=== PATIENT | female | born 1960 | race Two or more races ===

== ENCOUNTER 2017-07-01 11:23 | Inpatient (IN) | payer MEDICAID ==
[~2017-07-01] VITALS: Ht 152.4 cm; Wt 63.0 kg
[~2017-07-01 11:23] MED LIST: CARI-277; NOR10T; PROP-312
[2017-07-01 11:51] LABS: Urine WBC None Seen /hpf (0 - 5)
[2017-07-01 11:53] LABS: Basophils # (auto) 0.1 uL; Basophils % (auto) 0.9 % (0.0-2.0); Eosinophils # (auto) 0.1 uL; Eosinophils % (auto) 1.5 % (0.0-7.0); Hematocrit 42.5 % (36.0-46.0); Hemoglobin 14.2 g/dL (12.2-16.2); Lymphocytes # (auto) 2.4 uL; Lymphocytes % (auto) 25.4 % (10.0-50.0); Mean Corpuscular Hemoglobin 30.5 pg (28.0-32.0); Mean Corpuscular Hgb Conc. 33.4 g/dL (32.0-36.0); Mean Corpuscular Volume 91.2 fL (80.0-100.0); Monocytes # (auto) 0.4 uL; Monocytes % (auto) 4.3 % (0.0-12.0); Neutrophils # (auto) 6.3 uL; Neutrophils % (auto) 67.9 % (37.0-80.0); Platelet Count (auto) 296 10^3/uL (140-450); Red Blood Cells 4.66 10^6/uL (4.0-5.20); Red Cell Distribution Width 13.1 % (11.8-14.3); White Blood Cell 9.3 10^3/uL (4.4-10.8)
[2017-07-01 12:01] LABS: Urine Bacteria NONE SEEN /hpf (None Seen); Urine Blood TRACE /uL (Negative); Urine Mucus FEW (None Seen); Urine Specific Gravity 1.007 (1.001-1.035)
[2017-07-01 12:25] LABS: Albumin 3.9 g/dL (3.4-5.0); BUN/Creatinine Ratio 13.7; Bilirubin, Total 0.5 mg/dL (0.2-1.0); Calcium 8.4 mg/dL (8.5-10.1); Potassium 4.1 mmol/L (3.5-5.1)
[2017-07-01] MEDS ORDERED: SODIUM CHLORIDE 0.9% 500 ML IVB ONE (13:05)
[2017-07-01] MEDS ORDERED: HYDROmorphone HCL 2 MG/ML VL IV ONE ×2 (13:15→14:30)
[2017-07-01] MEDS ORDERED: ONDANSETRON HCL 4 MG/2 ML VIAL IV ONE (13:15)
[2017-07-01 15:15] LABS: Magnesium 2.2 mg/dL (1.6-2.6)
[2017-07-01] MEDS ORDERED: LEVOFLOXACIN 500MG 100 ML IV ONE (15:15)
[2017-07-01] MEDS ORDERED: metroNIDAZOLE 500MG/100ML 100 ML IV ONE (15:15)
[2017-07-01] MEDS ORDERED: NITROGLYCERIN 0.4 MG SL TAB SL PRN (15:45)
[2017-07-01] MEDS ORDERED: MORPHINE SULF INJ 2 MG/ML SYRINGE 1ML IV PRN (15:45)
[2017-07-01] MEDS: SODIUM CHLORIDE 0.9% 1,000 ML IV SCH ×3 (16:00→17:32)
[2017-07-01] MEDS: HYDROmorphone HCL 2 MG/ML VL IV PRN ×2 (18:50→22:34)
[2017-07-01] MEDS: ONDANSETRON HCL 4 MG/2 ML VIAL IV PRN (18:50)
[2017-07-01 20:00] VITALS: BP 134/75
[2017-07-01 20:10] VITALS: BP 134/75
[2017-07-01 22:00] VITALS: BP 134/75
[2017-07-01] MEDS: metroNIDAZOLE 500MG/100ML 100 ML IV SCH (22:04)
[2017-07-01] MEDS ORDERED: MORP15TA PO (23:40)
[2017-07-01] MEDS ORDERED: ALPR0.5T PO (23:40)
[2017-07-01] MEDS ORDERED: DOCU-94 PO (23:42)
[2017-07-01] MEDS ORDERED: BACL20TA PO ×2 (23:42)
[2017-07-02] MEDS: TEMAZEPAM 15 MG CAP PO PRN (00:23)
[2017-07-02] MEDS: SODIUM CHLORIDE 0.9% 1,000 ML IV SCH ×3 (01:46→21:50)
[2017-07-02] MEDS: HYDROmorphone HCL 2 MG/ML VL IV PRN ×5 (02:33→20:49)
[2017-07-02 05:00] VITALS: BP 130/64
[2017-07-02 05:31] LABS: Basophils # (auto) 0 uL; Basophils % (auto) 0.3 % (0.0-2.0); Eosinophils # (auto) 0 uL; Eosinophils % (auto) 0.1 % (0.0-7.0); Hemoglobin 13.1 g/dL (12.2-16.2); Lymphocytes # (auto) 1.1 uL; Lymphocytes % (auto) 6.8 % (10.0-50.0); Mean Corpuscular Hemoglobin 30.5 pg (28.0-32.0); Mean Corpuscular Hgb Conc. 33.4 g/dL (32.0-36.0); Mean Corpuscular Volume 91.4 fL (80.0-100.0); Monocytes # (auto) 0.8 uL; Monocytes % (auto) 5.1 % (0.0-12.0); Neutrophils # (auto) 14.3 uL; Neutrophils % (auto) 87.7 % (37.0-80.0); Platelet Count (auto) 254 10^3/uL (140-450); Red Blood Cells 4.27 10^6/uL (4.0-5.20); White Blood Cell 16.3 10^3/uL (4.4-10.8)
[2017-07-02 05:59] LABS: BUN/Creatinine Ratio 13.3; Bilirubin, Direct 0.3 mg/dL (0-0.2); Bilirubin, Total 0.8 mg/dL (0.2-1.0); Calcium 7.8 mg/dL (8.5-10.1); Potassium 3.7 mmol/L (3.5-5.1)
[2017-07-02] MEDS: metroNIDAZOLE 500MG/100ML 100 ML IV SCH ×3 (06:16→21:50)
[2017-07-02 09:00] VITALS: BP 142/82
[2017-07-02] MEDS ORDERED: ACETAMINOPHEN 325 MG TAB PO PRN (09:15)
[2017-07-02] MEDS: LEVOFLOXACIN 500MG 100 ML IV SCH (11:24)
[2017-07-02] MEDS ORDERED: POM (12:02)
[2017-07-02 13:00] VITALS: BP 166/80
[2017-07-02] MEDS: HYDROcodone-ACET 5/325MG TAB PO PRN (14:12)
[2017-07-02] MEDS: ALPRAZolam 0.5 MG TAB PO PRN (14:13)
[2017-07-02 16:55] VITALS: BP 148/83
[2017-07-02] MEDS: ONDANSETRON HCL 4 MG/2 ML VIAL IV PRN (17:18)
[2017-07-02 23:14] VITALS: BP 123/66
[2017-07-03] MEDS: ALPRAZolam 0.5 MG TAB PO PRN (01:17)
[2017-07-03] MEDS: HYDROmorphone HCL 2 MG/ML VL IV PRN ×4 (03:11→23:41)
[2017-07-03] MEDS: HYDROcodone-ACET 5/325MG TAB PO PRN ×3 (04:53→17:50)
[2017-07-03 05:06] VITALS: BP 136/76
[2017-07-03] MEDS: metroNIDAZOLE 500MG/100ML 100 ML IV SCH ×3 (05:49→21:17)
[2017-07-03] MEDS: LEVOFLOXACIN 500MG 100 ML IV SCH (08:50)
[2017-07-03] MEDS: SODIUM CHLORIDE 0.9% 1,000 ML IV SCH ×2 (08:50→17:50)
[2017-07-03 09:00] VITALS: BP 142/67
[2017-07-03 10:32] LABS: Albumin 2.4 g/dL (3.4-5.0); BUN/Creatinine Ratio 20.8; Calcium 7.8 mg/dL (8.5-10.1); Potassium 3.5 mmol/L (3.5-5.1); Total Protein 5.6 g/dL (6.4-8.2)
[2017-07-03 10:55] LABS: Basophils # (auto) 0.1 uL; Basophils % (auto) 0.4 % (0.0-2.0); Eosinophils # (auto) 0 uL; Eosinophils % (auto) 0.1 % (0.0-7.0); Hematocrit 34.6 % (36.0-46.0); Hemoglobin 11.6 g/dL (12.2-16.2); Lymphocytes # (auto) 1.1 uL; Lymphocytes % (auto) 6.9 % (10.0-50.0); Mean Corpuscular Hemoglobin 30.6 pg (28.0-32.0); Mean Corpuscular Hgb Conc. 33.6 g/dL (32.0-36.0); Monocytes % (auto) 6.5 % (0.0-12.0); Neutrophils # (auto) 13.4 uL; Neutrophils % (auto) 86.1 % (37.0-80.0); Platelet Count (auto) 215 10^3/uL (140-450); Red Cell Distribution Width 13.2 % (11.8-14.3); White Blood Cell 15.6 10^3/uL (4.4-10.8)
[2017-07-03 18:19] VITALS: BP 151/31
[2017-07-03] MEDS ORDERED: LORazepam 2MG/ML-1ML VIAL IV ONE (21:45)
[2017-07-03 22:00] VITALS: BP 165/90
[2017-07-03 23:10] VITALS: BP 145/80
[2017-07-04] MEDS: HYDROmorphone HCL 2 MG/ML VL IV PRN ×5 (02:44→20:05)
[2017-07-04 05:00] VITALS: BP 155/83
[2017-07-04] MEDS: SODIUM CHLORIDE 0.9% 1,000 ML IV SCH ×2 (05:36→13:49)
[2017-07-04] MEDS: metroNIDAZOLE 500MG/100ML 100 ML IV SCH ×3 (06:11→21:49)
[2017-07-04 06:28] LABS: Basophils # (auto) 0 uL; Basophils % (auto) 0.4 % (0.0-2.0); Eosinophils # (auto) 0.2 uL; Eosinophils % (auto) 2.3 % (0.0-7.0); Hematocrit 34.3 % (36.0-46.0); Hemoglobin 11.5 g/dL (12.2-16.2); Lymphocytes # (auto) 0.9 uL; Lymphocytes % (auto) 9.5 % (10.0-50.0); Mean Corpuscular Hemoglobin 30.8 pg (28.0-32.0); Mean Corpuscular Hgb Conc. 33.7 g/dL (32.0-36.0); Mean Corpuscular Volume 91.6 fL (80.0-100.0); Monocytes # (auto) 0.6 uL; Monocytes % (auto) 6.4 % (0.0-12.0); Neutrophils % (auto) 81.4 % (37.0-80.0); Platelet Count (auto) 232 10^3/uL (140-450); Red Blood Cells 3.74 10^6/uL (4.0-5.20); Red Cell Distribution Width 13.3 % (11.8-14.3); White Blood Cell 9.8 10^3/uL (4.4-10.8)
[2017-07-04 06:46] LABS: Calcium 7.8 mg/dL (8.5-10.1); Potassium 3.2 mmol/L (3.5-5.1)
[2017-07-04 06:49] LABS: Albumin 2.4 g/dL (3.4-5.0); BUN/Creatinine Ratio 23.7
[2017-07-04 06:52] LABS: Bilirubin, Total 0.9 mg/dL (0.2-1.0); Total Protein 5.6 g/dL (6.4-8.2)
[2017-07-04 07:09] LABS: Bilirubin, Direct 0.4 mg/dL (0-0.2)
[2017-07-04 08:00] VITALS: BP 152/85
[2017-07-04 08:51] LABS: Prothrombin Time 10.9 sec (9.37-12.3)
[2017-07-04 09:00] VITALS: BP 152/85
[2017-07-04] MEDS ORDERED: LIDOCAINE 2%HCL (LOCAL ANESTH.) INJ 20ML MDV ONE (09:44)
[2017-07-04] MEDS ORDERED: MIDAZOLAM HCL 1MG/1ML-2 ML VIAL ONE (10:22)
[2017-07-04] MEDS ORDERED: fentaNYL CITRATE 100 MCG/2 ML VL ONE (10:22)
[2017-07-04] MEDS: LEVOFLOXACIN 500MG 100 ML IV SCH (12:37)
[2017-07-04 13:16] VITALS: BP 152/74
[2017-07-04 17:20] VITALS: BP 124/86
[2017-07-04] MEDS: TEMAZEPAM 15 MG CAP PO PRN (21:40)
[2017-07-04] MEDS: HYDROcodone-ACET 5/325MG TAB PO PRN (21:40)
[2017-07-04 22:00] VITALS: BP 154/63
[2017-07-05] MEDS: HYDROmorphone HCL 2 MG/ML VL IV PRN ×3 (01:12→11:02)
[2017-07-05] MEDS: HYDROcodone-ACET 5/325MG TAB PO PRN ×3 (02:13→12:23)
[2017-07-05] MEDS: SODIUM CHLORIDE 0.9% 1,000 ML IV SCH ×2 (02:16→12:23)
[2017-07-05 05:00] VITALS: BP_SYST 141; BP_SYST 143; BP_DIAS 63; BP_DIAS 78
[2017-07-05] MEDS: metroNIDAZOLE 500MG/100ML 100 ML IV SCH (05:25)
[2017-07-05 09:00] VITALS: BP_SYST 141; BP_SYST 147; BP_DIAS 64; BP_DIAS 80
[2017-07-05] MEDS: LEVOFLOXACIN 500MG 100 ML IV SCH (10:11)
[2017-07-05] MEDS ORDERED: POTASSIUM CHL 20 Meq TABLET PO ONE (12:45)
[2017-07-05] MEDS ORDERED: SODIUM CHLORIDE 0.9% 1,000 ML IV SCH (13:00)
[2017-07-05] MEDS ORDERED: FAMOTIDINE 20 MG TAB PO SCH (13:15)
== END 2017-07-05 13:20 | disposition left against medical advice (07) | DRG 791 ==
LOC: ER 11:30 → OVERFLOW 11:31 → WEST WING 19:31
PROVIDERS: ADMIT Internal Medicine; ATTEND Internal Medicine
PROC: 0W9G3ZX Drainage of Peritoneal Cavity, Percutaneous Approach, Diagnostic (ICD-10-PCS; principal; 2017-07-04)
DX: K91.872 Postprocedural seroma of a digestive system organ or structure following a digestive system procedure (principal); E83.51 Hypocalcemia; E87.6 Hypokalemia; F17.210 Nicotine dependence, cigarettes, uncomplicated; F41.9 Anxiety disorder, unspecified; Z53.21 Procedure and treatment not carried out due to patient leaving prior to being seen by health care provider; Y83.8 Other surgical procedures as the cause of abnormal reaction of the patient, or of later complication, without mention of misadventure at the time of the procedure; M19.90 Unspecified osteoarthritis, unspecified site; Z90.49 Acquired absence of other specified parts of digestive tract; Z79.899 Other long term (current) drug therapy; Z98.51 Tubal ligation status; Y93.89 Activity, other specified; Y92.89 Other specified places as the place of occurrence of the external cause; Y99.8 Other external cause status; Z71.6 Tobacco abuse counseling
CPT/HCPCS: 10030; 36415; 49083; 74176; 76705; 76942; 80053; 80076; 81001; 82248; 83690; 83735; 85025; 85610; 87081; 87205; 93005; J1956; J2250; J2405; J3490

== ENCOUNTER 2020-03-30 12:13 | Inpatient (IN) | payer MEDICAID ==
[~2020-03-30] VITALS: Ht 152.4 cm; Wt 58.5 kg
[~2020-03-30 12:13] MED LIST changes: +ALPR0.5T PO; +BACL20TA PO; -CARI-277; +DOCU-94 PO; +MORP15TA PO; -NOR10T; +POM; -PROP-312
[2020-03-30 13:01] LABS: Basophils # (auto) 0 10 ^3/uL (0-0.2); Basophils % (auto) 0.1 % (0.0-2.0); Eosinophils # (auto) 0 10 ^3/uL (0-0.8); Eosinophils % (auto) 0.3 % (0.0-7.0); Hematocrit 37.6 % (36.0-46.0); Hemoglobin 12.7 g/dL (12.2-16.2); Lymphocytes # (auto) 1.3 10 ^3/uL (0.4-5.4); Lymphocytes % (auto) 7.5 % (10.0-50.0); Mean Corpuscular Hemoglobin 30.3 pg (28.0-32.0); Mean Corpuscular Hgb Conc. 33.8 g/dL (32.0-36.0); Mean Corpuscular Volume 89.7 fL (80.0-100.0); Neutrophils # (auto) 14.6 10 ^3/uL (1.6-8.6); Neutrophils % (auto) 86.1 % (37.0-80.0); Platelet Count (auto) 171 10^3/uL (140-450); Red Cell Distribution Width 13.3 % (11.8-14.3)
[2020-03-30 13:04] LABS: Urine Bacteria FEW /hpf (None Seen); Urine Blood 1+ /uL (Negative); Urine Specific Gravity 1.009 (1.001-1.035); Urine WBC 7 /hpf (0 - 5)
[2020-03-30 13:19] LABS: Calcium 8.7 mg/dL (8.5-10.1); Potassium 3.2 mmol/L (3.5-5.1)
[2020-03-30 13:25] LABS: Albumin 3.1 g/dL (3.4-5.0); BUN/Creatinine Ratio 14.5; Bilirubin, Total 1.1 mg/dL (0.2-1.0); Total Protein 6.3 g/dL (6.4-8.2)
[2020-03-30] MEDS ORDERED: PROCHLORPERAZINE EDISYLATE 5 MG/ML 2ML VIAL IV ONE (16:45)
[2020-03-30] MEDS ORDERED: POTASSIUM EFFERVESENT TAB 25 MEQ PO ONE (16:45)
[2020-03-30] MEDS ORDERED: SODIUM CHLORIDE 0.9% 1,000 ML IVB ONE (16:45)
[2020-03-30 17:10] LABS: Magnesium 2.2 mg/dL (1.6-2.6)
[2020-03-30] MEDS ORDERED: MORPHINE SULF INJ 2 MG/ML SYRINGE 1ML IV ONE (17:15)
[2020-03-30] MEDS ORDERED: D5W/SOD CHL 0.45%/KCL 20MEQ 1,000 ML IV SCH (17:45)
[2020-03-30] MEDS ORDERED: D5W/ SOD CHL 0.9%/KCL 20MEQ 1,000 ML IV ONE (17:45)
[2020-03-30] MEDS ORDERED: NITROGLYCERIN 0.4 MG SL TAB SL PRN (17:45)
[2020-03-30] MEDS ORDERED: PANTOPRAZOLE 40mg/50ML NS AE 50 ML IV ONE (17:45)
[2020-03-30] MEDS ORDERED: metroNIDAZOLE 500MG/100ML 100 ML IV ONE (17:45)
[2020-03-30] MEDS ORDERED: MORPHINE SULF INJ 2 MG/ML SYRINGE 1ML IV PRN (17:45)
[2020-03-30] MEDS ORDERED: cefTRIAXone 1GM/50ML D5W 50 ML IV ONE (17:45)
[2020-03-30] MEDS ORDERED: ONDANSETRON HCL 4 MG/2 ML VIAL IV PRN (17:45)
[2020-03-30 18:48] LABS: INR 0.95 (0.9-1.15); Partial Thromboplastin Time 26.4 sec (23.0-31.2)
[2020-03-30] MEDS: D5W/SOD CHL 0.45%/KCL 20MEQ 1,000 ML IV SCH (20:36)
[2020-03-30] MEDS: MORPHINE SULF INJ 2 MG/ML SYRINGE 1ML IV PRN (21:28)
[2020-03-31] MEDS: MORPHINE SULF INJ 2 MG/ML SYRINGE 1ML IV PRN ×4 (00:53→14:30)
[2020-03-31] MEDS: D5W/SOD CHL 0.45%/KCL 20MEQ 1,000 ML IV SCH ×2 (02:00→06:33)
[2020-03-31] MEDS ORDERED: MORPHINE SULF INJ 2 MG/ML SYRINGE 1ML IV PRN (05:45)
[2020-03-31 06:24] LABS: Basophils # (auto) 0 10 ^3/uL (0-0.2); Basophils % (auto) 0.3 % (0.0-2.0); Eosinophils # (auto) 0.1 10 ^3/uL (0-0.8); Eosinophils % (auto) 0.4 % (0.0-7.0); Hematocrit 35.2 % (36.0-46.0); Hemoglobin 12.1 g/dL (12.2-16.2); Lymphocytes # (auto) 1.2 10 ^3/uL (0.4-5.4); Mean Corpuscular Hemoglobin 30.7 pg (28.0-32.0); Mean Corpuscular Hgb Conc. 34.3 g/dL (32.0-36.0); Mean Corpuscular Volume 89.6 fL (80.0-100.0); Monocytes # (auto) 1.1 10 ^3/uL (0-1.3); Monocytes % (auto) 6.4 % (0.0-12.0); Neutrophils # (auto) 14.4 10 ^3/uL (1.6-8.6); Neutrophils % (auto) 85.9 % (37.0-80.0); Platelet Count (auto) 162 10^3/uL (140-450); Red Blood Cells 3.93 10^6/uL (4.0-5.20); Red Cell Distribution Width 13.3 % (11.8-14.3); White Blood Cell 16.7 10^3/uL (4.4-10.8)
[2020-03-31] MEDS: metroNIDAZOLE 500MG/100ML 100 ML IV SCH ×3 (06:33→21:48)
[2020-03-31 06:34] LABS: Potassium 3.7 mmol/L (3.5-5.1)
[2020-03-31 07:02] LABS: Albumin 2.6 g/dL (3.4-5.0); BUN/Creatinine Ratio 8.5; Bilirubin, Total 0.9 mg/dL (0.2-1.0); Calcium 8.1 mg/dL (8.5-10.1); Total Protein 5.8 g/dL (6.4-8.2)
[2020-03-31] MEDS ORDERED: POVIDONE IODINE 10 % TOPICAL OINT 30GM TOP ONE (07:06)
[2020-03-31] MEDS ORDERED: cefTRIAXone 1GM/50ML D5W 50 ML IV SCH (09:00)
[2020-03-31] MEDS ORDERED: MIDAZOLAM HCL 1MG/1ML-2 ML VIAL ONE (09:09)
[2020-03-31] MEDS ORDERED: ROCURONIUM 10MG/ML 10ML VIAL IV ONE (09:09)
[2020-03-31] MEDS ORDERED: ETOMIDATE (2MG/ML) 20ML VIAL IV ONE (09:10)
[2020-03-31] MEDS ORDERED: LIDOCAINE 1% (LOCAL ANESTH.) PF 5ml SDV ONE (09:12)
[2020-03-31] MEDS ORDERED: SUCCINYLCHOLINE CHLORIDE 20 MG/ML 10ML VIAL IV ONE (09:12)
[2020-03-31] MEDS ORDERED: ONDANSETRON HCL 4 MG/2 ML VIAL IV PRN (09:15)
[2020-03-31] MEDS ORDERED: NALOXONE HCL 0.4 MG/ML VIAL IV PRN (09:15)
[2020-03-31] MEDS ORDERED: HYDROmorphone HCL 2 MG/ML VL IV PRN (09:15)
[2020-03-31] MEDS ORDERED: fentaNYL CITRATE 100 MCG/2 ML VL ONE (09:46)
[2020-03-31] MEDS ORDERED: LIDOCAINE HCL 2% TOP JELLY 5ML TOP ONE (10:08)
[2020-03-31] MEDS ORDERED: GLYCOPYRROLATE 0.2 MG/ML 1ML VIAL ONE (10:40)
[2020-03-31] MEDS ORDERED: NEOSTIGMINE 1 MG/ML INJ (10mg/10ML VIAL) ONE (10:40)
[2020-03-31] MEDS ORDERED: D5W/SOD CHL 0.45%/KCL 40MEQ 1,000 ML IV SCH (10:45)
[2020-03-31] MEDS ORDERED: DOCUSATE SOD 100 MG CAP PO PRN (10:45)
[2020-03-31] MEDS: HYDROmorphone HCL 2 MG/ML VL IV PRN ×3 (11:10→12:30)
--- NOTE | 2020-03-31 13:17 | NUR ---
MS admit from OR Patient was brought up to the floor on a stretcher and transferred to the bed in the room. She is groggy but easy to arouse, oriented. Dressing is CDI. MONSTER drain present and was emptied prior to being brought to the floor. Will continue to monitor. Small amount of serosanguinous fluid in tubing of MONSTER drain. Patient was hooked up to LCS per doctor's order. Patient was placed on 4L O2 via NC per orders. Will continue to monitor patient. Bed in lowest position, wheels locked, upper side rails in up position. Call light next to patient on bed where it can be easily reached.
[2020-03-31] MEDS ORDERED: metroNIDAZOLE 500MG/100ML 100 ML IV SCH (14:00)
[2020-03-31] MEDS ORDERED: ceFAZolin 1GM/50ML 50 ML IV SCH (14:00)
[2020-03-31] MEDS ORDERED: HYDR-4833 PO (16:48)
[2020-03-31 17:00] VITALS: BP 144/89
[2020-03-31] MEDS ORDERED: cefTRIAXone 1GM/50ML D5W 50 ML IV ONE (18:00)
--- NOTE | 2020-03-31 18:42 | NUR ---
NG tube pulled out NG tube was pulled out. This nurse was going to place another NG tube but patient is currently refusing the NG tube saying it is making her head hurt. This nurse will endorse to the next shift as they might be able to put it in once the patient has had another dose of Morphine for pain (too soon to give at this time) and her scheduled Xanax. NG tube drained dark brown fluid prior to removal of NG tube.
[2020-03-31] MEDS: HYDROcodone-ACET 10/325MG TAB PO PRN (19:52)
[2020-03-31] MEDS: D5W/SOD CHL 0.45%/KCL 40MEQ 1,000 ML IV SCH (20:20)
[2020-03-31] MEDS: ALPRAZolam 0.5 MG TAB PO SCH (21:48)
[2020-03-31 22:00] VITALS: BP 148/70
--- NOTE | 2020-03-31 22:04 | NUR ---
pt is refusing to hae ng tube reinserted, will continue to encourage compliance.
[2020-04-01] MEDS: HYDROcodone-ACET 10/325MG TAB PO PRN ×3 (00:01→10:02)
[2020-04-01 05:00] VITALS: BP 168/99
--- NOTE | 2020-04-01 05:47 | NUR ---
pt has pulled out both IV's new one started, pt educated on risk and benefits, verbalized understanding. Pt continuews to refuse NG tube, day shift nurse to notify Dr. Cruz of situation. Full linen change and gown change.
[2020-04-01] MEDS: metroNIDAZOLE 500MG/100ML 100 ML IV SCH ×3 (06:11→21:05)
[2020-04-01] MEDS: D5W/SOD CHL 0.45%/KCL 40MEQ 1,000 ML IV SCH (06:12)
[2020-04-01 06:24] LABS: Basophils # (auto) 0.1 10 ^3/uL (0-0.2); Basophils % (auto) 0.4 % (0.0-2.0); Eosinophils # (auto) 0.1 10 ^3/uL (0-0.8); Eosinophils % (auto) 0.7 % (0.0-7.0); Hematocrit 36.5 % (36.0-46.0); Hemoglobin 12.5 g/dL (12.2-16.2); Lymphocytes # (auto) 1.8 10 ^3/uL (0.4-5.4); Lymphocytes % (auto) 13.3 % (10.0-50.0); Mean Corpuscular Hemoglobin 30.6 pg (28.0-32.0); Mean Corpuscular Hgb Conc. 34.2 g/dL (32.0-36.0); Mean Corpuscular Volume 89.5 fL (80.0-100.0); Monocytes % (auto) 7.6 % (0.0-12.0); Neutrophils # (auto) 10.6 10 ^3/uL (1.6-8.6); Nucleated Red Blood Cells % 0.1 %; Platelet Count (auto) 205 10^3/uL (140-450); Red Blood Cells 4.08 10^6/uL (4.0-5.20); Red Cell Distribution Width 13.1 % (11.8-14.3); White Blood Cell 13.6 10^3/uL (4.4-10.8)
[2020-04-01 06:33] LABS: Albumin 2.7 g/dL (3.4-5.0); Calcium 8.5 mg/dL (8.5-10.1); Potassium 3.5 mmol/L (3.5-5.1)
--- NOTE | 2020-04-01 06:35 | NUR ---
Dr. Cruz paged re: pt NG tube, awaiting further orders
[2020-04-01 06:36] LABS: Bilirubin, Total 0.8 mg/dL (0.2-1.0); Total Protein 5.9 g/dL (6.4-8.2)
--- NOTE | 2020-04-01 06:52 | NUR ---
Dr. Cruz returned call, ok to leave NG tube out, no new orders. MONSTER output 15cc ss fluid
[2020-04-01] MEDS: cefTRIAXone 1GM/50ML D5W 50 ML IV SCH (08:52)
[2020-04-01 09:00] VITALS: BP 155/93
[2020-04-01] MEDS: PANTOPRAZOLE 40 MG/10 ML VIAL INJ IV SCH (10:01)
--- NOTE | 2020-04-01 11:21 | NUR ---
PT ASKING FOR PAIN MEDICATIONS AT 0800, TOLD PT SHE HAD PAIN MED AT 0615 AND THE MED WAS EVERY 4 HOURS. PT STATED SHE IS IN TERRIBLE PAIN. EDUCATED PT ON PAIN MEDICATIONS AND THE IMPORTANCE OF MONITORING VITAL SIGNS THROUGHOUT. PT VERBALIZED UNDERSTANDING, BUT CONTINUED TO ASK FOR PAIN MEDS. MEDICATED WITH NORCO 10/325 AT 1000. PRESENTLY PT IS RESTING IN BED WITH EYES CLOSED, MONITORING CLOSELY. DR CABRERA ROUNDED.
[2020-04-01 13:00] VITALS: BP 148/83
[2020-04-01] MEDS ORDERED: KETOROLAC TROMETH 30 MG/ML 1ML VIAL IV ONE (14:45)
[2020-04-01] MEDS: KETOROLAC TROMETH 30 MG/ML 1ML VIAL IV SCH ×2 (14:49→21:05)
--- NOTE | 2020-04-01 15:51 | NUR ---
DR RIVERA ROUNDED, NEW ORDERS NOTED. NORCO D/C, TORADOL SCHEDULED Q 6 HOURS. AT PRESENT PT RESTING IN BED WITH EYES CLOSED. CONTINUING TO MONITOR.
[2020-04-01 17:00] VITALS: BP 149/89
[2020-04-01] MEDS ORDERED: D5W/SOD CHL 0.45%/KCL 40MEQ 1,000 ML IV SCH (17:00)
[2020-04-01] MEDS: ALPRAZolam 0.5 MG TAB PO SCH (21:05)
[2020-04-01 22:00] VITALS: BP 142/85
[2020-04-02] MEDS: KETOROLAC TROMETH 30 MG/ML 1ML VIAL IV SCH ×2 (03:12→09:09)
[2020-04-02] MEDS: metroNIDAZOLE 500MG/100ML 100 ML IV SCH (05:36)
[2020-04-02 08:39] VITALS: BP 137/95
[2020-04-02] MEDS: cefTRIAXone 1GM/50ML D5W 50 ML IV SCH (09:09)
[2020-04-02] MEDS: PANTOPRAZOLE 40 MG/10 ML VIAL INJ IV SCH (09:09)
[2020-04-02 10:03] LABS: Basophils # (auto) 0.1 10 ^3/uL (0-0.2); Basophils % (auto) 0.6 % (0.0-2.0); Eosinophils # (auto) 0.1 10 ^3/uL (0-0.8); Eosinophils % (auto) 0.8 % (0.0-7.0); Hematocrit 37.5 % (36.0-46.0); Hemoglobin 12.5 g/dL (12.2-16.2); Lymphocytes # (auto) 1.2 10 ^3/uL (0.4-5.4); Lymphocytes % (auto) 11.6 % (10.0-50.0); Mean Corpuscular Hgb Conc. 33.3 g/dL (32.0-36.0); Monocytes # (auto) 0.6 10 ^3/uL (0-1.3); Monocytes % (auto) 5.4 % (0.0-12.0); Neutrophils # (auto) 8.7 10 ^3/uL (1.6-8.6); Neutrophils % (auto) 81.6 % (37.0-80.0); Platelet Count (auto) 239 10^3/uL (140-450); Red Blood Cells 4.16 10^6/uL (4.0-5.20); Red Cell Distribution Width 13.1 % (11.8-14.3); White Blood Cell 10.7 10^3/uL (4.4-10.8)
[2020-04-02 10:20] LABS: Albumin 2.8 g/dL (3.4-5.0); Calcium 8.7 mg/dL (8.5-10.1); Potassium 3.8 mmol/L (3.5-5.1)
[2020-04-02 10:24] LABS: BUN/Creatinine Ratio 11.9; Bilirubin, Total 0.6 mg/dL (0.2-1.0); Total Protein 6.1 g/dL (6.4-8.2)
[2020-04-02] MEDS ORDERED: IBUPROFEN 400 MG TAB PO PRN (11:45)
[2020-04-02 13:00] VITALS: BP 145/84
--- NOTE | 2020-04-02 14:35 | NUR ---
PT LEFT FACILITY AT 1405 WITH IV, TELE, AND DRAIN IN PLACE. 'S OFFICE CALLED, SPOKE WITH BRIE.
== END 2020-04-02 14:05 | disposition left against medical advice (07) | DRG 710 ==
LOC: ER 12:13 → TELE 12:14 → CENTRAL 03-31 13:52
PROVIDERS: ADMIT Nurse Practitioner Acute Care; ATTEND Internal Medicine Nephrology
PROC: 0DJW0ZZ Inspection of Peritoneum, Open Approach (ICD-10-PCS; 2020-03-31)
PROC: 0D9W30Z Drainage of Peritoneum with Drainage Device, Percutaneous Approach (ICD-10-PCS; principal; 2020-04-01)
DX: A41.9 Sepsis, unspecified organism (principal); K25.5 Chronic or unspecified gastric ulcer with perforation; R65.20 Severe sepsis without septic shock; J44.9 Chronic obstructive pulmonary disease, unspecified; E87.6 Hypokalemia; N30.00 Acute cystitis without hematuria; E44.1 Mild protein-calorie malnutrition; E88.09 Other disorders of plasma-protein metabolism, not elsewhere classified; K66.8 Other specified disorders of peritoneum; M43.16 Spondylolisthesis, lumbar region; F17.210 Nicotine dependence, cigarettes, uncomplicated; I10 Essential (primary) hypertension; K59.00 Constipation, unspecified; F32.9 Major depressive disorder, single episode, unspecified; F41.9 Anxiety disorder, unspecified; M19.90 Unspecified osteoarthritis, unspecified site; Z90.49 Acquired absence of other specified parts of digestive tract; Z79.899 Other long term (current) drug therapy; Z68.25 Body mass index [BMI] 25.0-25.9, adult; Z98.51 Tubal ligation status
CPT/HCPCS: 36415; 71045; 71046; 74176; 80053; 81001; 83690; 83735; 85025; 85610; 85730; 86850; 86900; 86901; 87040; 87081; 87086; 87426; 93005; 96361; 96365; 96366; 96367; 96375; 97163; C9113; G0378; J0330; J0690; J0696; J1885; J2250; J2405; J3490

== ENCOUNTER 2020-04-03 14:56 | Inpatient (IN) | payer MEDICAID ==
[~2020-04-03] VITALS: Ht 152.4 cm; Wt 56.4 kg
[~2020-04-03 14:56] MED LIST changes: +HYDR-4833 PO
[2020-04-03 15:30] LABS: Basophils # (auto) 0.1 10 ^3/uL (0-0.2); Basophils % (auto) 0.5 % (0.0-2.0); Eosinophils # (auto) 0.4 10 ^3/uL (0-0.8); Eosinophils % (auto) 3.6 % (0.0-7.0); Hematocrit 36.5 % (36.0-46.0); Hemoglobin 12.5 g/dL (12.2-16.2); Lymphocytes # (auto) 2.4 10 ^3/uL (0.4-5.4); Lymphocytes % (auto) 23.3 % (10.0-50.0); Mean Corpuscular Hemoglobin 30.6 pg (28.0-32.0); Mean Corpuscular Hgb Conc. 34.3 g/dL (32.0-36.0); Mean Corpuscular Volume 89.4 fL (80.0-100.0); Monocytes # (auto) 0.8 10 ^3/uL (0-1.3); Monocytes % (auto) 8.1 % (0.0-12.0); Neutrophils # (auto) 6.6 10 ^3/uL (1.6-8.6); Neutrophils % (auto) 64.5 % (37.0-80.0); Nucleated Red Blood Cells % 0.1 %; Platelet Count (auto) 302 10^3/uL (140-450); Red Blood Cells 4.08 10^6/uL (4.0-5.20); Red Cell Distribution Width 13.2 % (11.8-14.3); White Blood Cell 10.3 10^3/uL (4.4-10.8)
[2020-04-03 15:43] LABS: Urine Bacteria NONE SEEN /hpf (None Seen); Urine Blood 2+ /uL (Negative); Urine Specific Gravity 1.014 (1.001-1.035); Urine WBC 7 /hpf (0 - 5)
[2020-04-03] MEDS ORDERED: ONDANSETRON HCL 4 MG/2 ML VIAL IV ONE (15:45)
[2020-04-03] MEDS ORDERED: MORPHINE SULFATE 4 MG/ML SYR/VIAL IV ONE (15:45)
[2020-04-03] MEDS ORDERED: SODIUM CHLORIDE 0.9% 500 ML IVB ONE (15:45)
[2020-04-03 15:52] LABS: Albumin 2.8 g/dL (3.4-5.0); BUN/Creatinine Ratio 13.2; Calcium 8.9 mg/dL (8.5-10.1); Potassium 3.5 mmol/L (3.5-5.1)
[2020-04-03 15:55] LABS: Bilirubin, Total 0.3 mg/dL (0.2-1.0); Total Protein 6.2 g/dL (6.4-8.2)
[2020-04-03] MEDS ORDERED: NITROGLYCERIN 0.4 MG SL TAB SL PRN ×2 (18:00→18:30)
[2020-04-03] MEDS ORDERED: MORPHINE SULF INJ 2 MG/ML SYRINGE 1ML IV PRN ×2 (18:00→18:30)
[2020-04-03] MEDS ORDERED: HYDROcodone-ACET 5/325MG TAB PO PRN (18:30)
[2020-04-03] MEDS ORDERED: ALUM & MAG HYDROX-SIMETH LIQ(MAALOX) 30 ML PO PRN (18:30)
[2020-04-03] MEDS ORDERED: metroNIDAZOLE 500MG/100ML 100 ML IV ONE (18:30)
[2020-04-03] MEDS ORDERED: cefTRIAXone 1GM/50ML D5W 50 ML IV ONE (18:30)
[2020-04-03] MEDS ORDERED: ONDANSETRON HCL 4 MG/2 ML VIAL IV PRN (18:30)
[2020-04-03] MEDS ORDERED: DOCUSATE SOD 100 MG CAP PO PRN (18:30)
[2020-04-03] MEDS ORDERED: ACETAMINOPHEN 325 MG TAB PO PRN (18:30)
[2020-04-03] MEDS ORDERED: LORazepam 0.5 MG TAB PO PRN (18:30)
[2020-04-03 19:19] LABS: Cholesterol 110 mg/dL (< 200); HDL Cholesterol 34 mg/dL (40-59); LDL Cholesterol 61 mg/dL (< 100); Triglycerides 95 mg/dL (< 150)
[2020-04-03] MEDS: PANTOPRAZOLE 40 MG TAB PO SCH ×2 (19:19→21:29)
[2020-04-03 19:28] LABS: Alcohol, Urine < 3.0 mg/dL (0-10); Amphetamine Screen, Urine NEGATIVE (NEGATIVE); Barbiturate Scree,Urine NEGATIVE (NEGATIVE); Benzodiazephine Screen, Urine POSITIVE (NEGATIVE); Cannabinoid Screen, Urine NEGATIVE (NEGATIVE); Cocaine Screen, Urine NEGATIVE (NEGATIVE); Opiate Scree,Urine POSITIVE (NEGATIVE); Phencyclidine Screen, Urine NEGATIVE (NEGATIVE)
[2020-04-03 19:33] VITALS: BP 117/83
[2020-04-03] MEDS: SODIUM CHLORIDE 0.9% 1,000 ML IV SCH (20:00)
[2020-04-03 20:30] VITALS: BP 117/83
[2020-04-03] MEDS: MORPHINE SULF INJ 2 MG/ML SYRINGE 1ML IV PRN (21:31)
[2020-04-03] MEDS ORDERED: ATORVASTATIN 20 MG TAB PO SCH (22:00)
[2020-04-04 05:00] VITALS: BP 113/56
[2020-04-04] MEDS ORDERED: metroNIDAZOLE 500MG/100ML 100 ML IV SCH (06:00)
--- NOTE | 2020-04-04 06:00 | NUR ---
admitted 59 yeear old female with dx of acute gastroenteritis. Patient is alert and oriented, ambulatory, and on room air. Patient is noted to have incision on her mid-abdominal area, under steristrips. Patient also has a cherelle drain with serosanguinous output. No bleeding on isertion site. Noted serous drainage with no odor, photos taken per protocol. MRSA swab taken. Dressing to cherelle reinforced. (+) flatus, (+) bowel sounds to 4 quadrants. PRN morphine iv given as requested. Will endorse pending SS consult. Patient in no acute distress.
[2020-04-04] MEDS: MORPHINE SULF INJ 2 MG/ML SYRINGE 1ML IV PRN (06:49)
--- NOTE | 2020-04-04 07:30 | NUR ---
opening shift note Assumed care of patient from NOC RN. Patient is AOx4, no s/s of distress noted. Bed is in lowest locked position, side rails up x2 and call light within reach. Updated patient on plan of care and patient verbalized understanding. Will continue to monitor q1hr and PRN.
[2020-04-04] MEDS: PANTOPRAZOLE 40 MG TAB PO SCH (08:47)
[2020-04-04 09:00] VITALS: BP 135/79
[2020-04-04] MEDS ORDERED: cefTRIAXone 1GM/50ML D5W 50 ML IV SCH (09:00)
[2020-04-04] MEDS ORDERED: CHOLECALCIFEROL (VITD3) 2,000 UNIT CAP PO SCH (10:00)
[2020-04-04] MEDS ORDERED: ENOXAPARIN SOD 40 MG/0.4 ML SYRINGE SC SCH (10:00)
--- NOTE | 2020-04-04 10:16 | NUR ---
ss consult Per consult information on advanced directive. Patient has been provided with advanced directive. Addendum: 04/04/20 at 1017 by Juju Porter Amended: Links added.
--- NOTE | 2020-04-04 10:22 | NUR ---
Physician rounding Dr. Corrales at nurses station. Per MD patient is clear from GI stand point for D/C. Recommending pain medication as well as PPI BID upon D/C. Will notify attending MD.
[2020-04-04] MEDS ORDERED: CHOLECALCIFEROL (VITD3) 1,000UNIT=25mCg TAB PO SCH (11:00)
[2020-04-04] MEDS: SODIUM CHLORIDE 0.9% 1,000 ML IV SCH (11:05)
--- NOTE | 2020-04-04 11:19 | NUR ---
physician rounding Dr. Emerson at bedside. MD updated patient on plan of care and patient verbalized understanding. New orders received, will follow through.
[2020-04-04] MEDS ORDERED: PANT40TA2 PO (11:27)
[2020-04-04 12:50] VITALS: BP 135/79
[2020-04-04 13:00] VITALS: BP 141/89
--- NOTE | 2020-04-04 13:20 | NUR ---
Discharge note Discharge instructions given as ordered. Encourage to follow up with PMD as instructed. All questions and concerns addressed. Patient verbalized understanding. IV removed with catheter intact, pressure dressing applied. Telemetry unit returned to ICU. Patient stated " i would like to walk down to the lobby and wait." Patient accompanied to main lobby with all personal belongings, accompanied by staff member. No distress noted at time of departure.
== END 2020-04-04 13:20 | disposition home or self-care (01) | DRG 249 ==
LOC: ER 14:56 → TELE 14:57 → TELE-WESTW 19:33
PROVIDERS: ADMIT Hospitalist; ATTEND Internal Medicine Pulmonary Disease
DX: K52.9 Noninfective gastroenteritis and colitis, unspecified (principal); F41.9 Anxiety disorder, unspecified; F32.9 Major depressive disorder, single episode, unspecified; E78.5 Hyperlipidemia, unspecified; K27.9 Peptic ulcer, site unspecified, unspecified as acute or chronic, without hemorrhage or perforation; K21.9 Gastro-esophageal reflux disease without esophagitis; I10 Essential (primary) hypertension; F17.210 Nicotine dependence, cigarettes, uncomplicated; K29.70 Gastritis, unspecified, without bleeding; K29.80 Duodenitis without bleeding; K83.8 Other specified diseases of biliary tract; M19.90 Unspecified osteoarthritis, unspecified site; Z98.51 Tubal ligation status; Z90.49 Acquired absence of other specified parts of digestive tract; Z79.899 Other long term (current) drug therapy; Z68.24 Body mass index [BMI] 24.0-24.9, adult; E87.1 Hypo-osmolality and hyponatremia; E43 Unspecified severe protein-calorie malnutrition; N39.0 Urinary tract infection, site not specified
CPT/HCPCS: 36415; 74176; 80053; 80061; 80307; 81001; 83036; 83690; 84484; 85025; 87040; 87081; 87086; 96361; 96365; 96367; 96375; G0378; J0696; J2405; J3490

== ENCOUNTER 2024-03-05 20:48 | Inpatient (IN) | payer OTHER ==
[~2024-03-05] VITALS: Ht 162.6 cm; Wt 60.9 kg
[2024-03-05 20:42] VITALS: BP 120/70; PULSE 85; O2SAT 100
[~2024-03-05 20:48] MED LIST changes: +PANT40TA2 PO
[2024-03-05 20:55] VITALS: PULSE 83; RESP 14; O2SAT 99
[2024-03-05 21:24] LABS: Eosinophils # (auto) 0.3 10 ^3/uL (0-0.8); Neutrophils # (auto) 5.7 10 ^3/uL (1.6-8.6)
[2024-03-05 21:26] LABS: Basophils # (auto) 0.1 10 ^3/uL (0-0.2); Basophils % (auto) 0.6 % (0.0-2.0); Eosinophils % (auto) 2.9 % (0.0-7.0); Hemoglobin 11.3 g/dL (12.2-16.2); Lymphocytes # (auto) 2.6 10 ^3/uL (0.4-5.4); Mean Corpuscular Hemoglobin 30.9 pg (28.0-32.0); Mean Corpuscular Hgb Conc. 34.1 g/dL (32.0-36.0); Mean Corpuscular Volume 90.6 fL (80.0-100.0); Monocytes % (auto) 10.1 % (0.0-12.0); Neutrophils % (auto) 59.4 % (37.0-80.0); Platelet Count (auto) 293 10^3/uL (140-450); Red Blood Cells 3.64 10^6/uL (4.0-5.20); Red Cell Distribution Width 13.1 % (11.8-14.3); White Blood Cell 9.6 10^3/uL (4.4-10.8)
[2024-03-05 21:37] LABS: Alanine Aminotransferase 17 U/L (7-40); Albumin 3.8 g/dL (3.2-4.8); Alkaline Phosphatase 87 U/L (46-116); Anion Gap 0 (5-15); Aspartate Aminotransferase 17 U/L (13-40); BUN/Creatinine Ratio 14.9 (10.0-20.0); Bilirubin, Total 0.3 mg/dL (0.2-1.0); Blood Urea Nitrogen 11 mg/dL (9-23); Calcium 8.3 mg/dL (8.7-10.4); Carbon Dioxide 29 mmol/L (20-30); Chloride 107 mmol/L (98-107); Glucose 101 mg/dL (74-106); Magnesium 1.5 mg/dL (1.6-2.6); Potassium 3.9 mmol/L (3.5-5.1); Sodium 136 mmol/L (136-145)
[2024-03-05 21:40] LABS: INR 0.98 (0.9-1.15); Prothrombin Time 10.4 sec (9.3-11.8)
[2024-03-05 22:01] VITALS: BP 123/69; PULSE 82; O2SAT 98
[2024-03-05 22:56] LABS: Base Excess 3.8 mmol/L (-2.0-3.0)
[2024-03-05 23:55] VITALS: BP 132/70; PULSE 88; O2SAT 98
[2024-03-06] VITALS (9 sets, daily range): BP systolic 115–130; BP diastolic 60–76; PULSE 75–90; RESP 16–20; TEMP 98.4–98.6; O2SAT 91–100
[2024-03-06 00:17] LABS: COVID19 ANTIGEN SOFIA FIA NEGATIVE (NEGATIVE); Rapid Influenza A Negative (Negative); Rapid Influenza B Negative (Negative)
[2024-03-06] MEDS ORDERED: NITROGLYCERIN 0.4 MG SL TAB SL PRN (05:15)
[2024-03-06] MEDS ORDERED: ALBUTEROL SULF 2.5 MG/0.5ML(0.5%) NEB SOLN NEB PRN (05:15)
[2024-03-06] MEDS ORDERED: ONDANSETRON HCL 4 MG/2 ML VIAL IV PRN ×2 (05:15→13:45)
[2024-03-06] MEDS ORDERED: IPRATROPIUM BROM 0.5 MG/2.5ML INH SOL NEB PRN (05:15)
[2024-03-06] MEDS: MAGNESIUM SULFATE 1GM/100ML 100 ML IV SCH (05:30)
[2024-03-06 10:16] LABS: Urine Bacteria FEW /hpf (None Seen); Urine Blood Negative /uL (Negative); Urine Clarity Clear (Clear); Urine Color Light-Yellow (Yellow); Urine Hyaline Cast FEW /lpf (0 - 2); Urine Protein, UAD Negative (Negative); Urine Specific Gravity 1.007 (1.001-1.035); Urine Urobilinogen Normal (Negative); Urine WBC <1 /hpf (0 - 5)
[2024-03-06] MEDS ORDERED: ACETAMINOPHEN 500 MG TAB PO PRN (13:45)
[2024-03-06] MEDS: cefTRIAXone 1GM/50ML D5W 50 ML IV SCH (14:31)
[2024-03-06] MEDS: AZITHROMYCIN 500MG/ 250ML 250 ML IV SCH (15:09)
[2024-03-06] MEDS: MORPHINE SULFATE INJ 2 MG/ml SYRG IV PRN (16:33)
[2024-03-06] MEDS: ALBUTEROL SULF 2.5 MG/0.5ML(0.5%) NEB SOLN NEB SCH (18:01)
[2024-03-06] MEDS: IPRATROPIUM BROM 0.5 MG/2.5ML INH SOL NEB SCH (18:01)
[2024-03-06] MEDS: BUDESONIDE (INHALATION) 0.5 MG/2 ML NEB NEB SCH (18:06)
[2024-03-06] MEDS ORDERED: IBUP-1455 PO (19:12)
[2024-03-06] MEDS ORDERED: HYDR-4072 PO (19:12)
[2024-03-06] MEDS ORDERED: [UNRECOGNIZED DRUG - CODE] PO (19:12)
[2024-03-06] MEDS ORDERED: AMLO1TAB22 PO (19:12)
[2024-03-06] MEDS: HYDROcodone-ACET 5/325MG TAB PO PRN (19:48)
[2024-03-06] MEDS: methylPREDNISolone SOD SUCC 40 MG/ML VL IV SCH (21:38)
[2024-03-07] VITALS (15 sets, daily range): BP systolic 116–141; BP diastolic 68–78; PULSE 85–104; RESP 18–20; TEMP 97.8–98.5; O2SAT 92–99
[2024-03-07 07:19] LABS: Basophils # (auto) 0 10 ^3/uL (0-0.2); Basophils % (auto) 0.3 % (0.0-2.0); Chloride 102 mmol/L (98-107); Eosinophils # (auto) 0 10 ^3/uL (0-0.8); Eosinophils % (auto) 0.1 % (0.0-7.0); Hematocrit 35.7 % (36.0-46.0); Hemoglobin 12.1 g/dL (12.2-16.2); Lymphocytes # (auto) 0.7 10 ^3/uL (0.4-5.4); Lymphocytes % (auto) 10.2 % (10.0-50.0); Mean Corpuscular Hemoglobin 30.5 pg (28.0-32.0); Mean Corpuscular Hgb Conc. 33.9 g/dL (32.0-36.0); Mean Corpuscular Volume 89.9 fL (80.0-100.0); Monocytes # (auto) 0 10 ^3/uL (0-1.3); Monocytes % (auto) 0.5 % (0.0-12.0); Neutrophils % (auto) 88.9 % (37.0-80.0); Nucleated Red Blood Cells % 0.1 %; Platelet Count (auto) 337 10^3/uL (140-450); Potassium 4.2 mmol/L (3.5-5.1); Red Blood Cells 3.97 10^6/uL (4.0-5.20); Red Cell Distribution Width 13.3 % (11.8-14.3); Sodium 138 mmol/L (136-145); White Blood Cell 6.8 10^3/uL (4.4-10.8)
[2024-03-07 07:20] LABS: Anion Gap 6 (5-15); Calcium 9.1 mg/dL (8.7-10.4); Carbon Dioxide 30 mmol/L (20-30)
[2024-03-07 07:25] LABS: BUN/Creatinine Ratio 12.9 (10.0-20.0); Blood Urea Nitrogen 12 mg/dL (9-23); Glucose 201 mg/dL (74-106)
[2024-03-07 07:26] LABS: Magnesium 1.8 mg/dL (1.6-2.6)
[2024-03-07] MEDS: ACETAMINOPHEN 325 MG TAB PO PRN (14:18)
[2024-03-07] MEDS: ALBUTEROL SULF 2.5 MG/0.5ML(0.5%) NEB SOLN NEB ONE (14:39)
[2024-03-07] MEDS: IPRATROPIUM BROM 0.5 MG/2.5ML INH SOL NEB ONE (14:39)
[2024-03-07] MEDS: methylPREDNISolone SOD SUCC 125 MG/2 ML VL IV ONE (14:53)
[2024-03-07] MEDS ORDERED: DEXTROSE (50%) 50ML SYRG IV PRN (15:30)
[2024-03-07] MEDS: ACCU-CHEK COMFORT CURVE STRIP VI SCH (18:09)
[2024-03-07] MEDS: InsuLIN REG 1unit/0.01ml Soln (100units/ml) SC SCH (18:12)
[2024-03-08] VITALS (19 sets, daily range): BP systolic 121–132; BP diastolic 56–73; PULSE 88–120; RESP 16–22; TEMP 98–99; O2SAT 88–100
[2024-03-08] MEDS: MELATONIN 5 MG TAB PO ONE (21:36)
[2024-03-09] VITALS (19 sets, daily range): BP systolic 123–139; BP diastolic 65–85; PULSE 80–99; RESP 15–20; TEMP 97.5–98.2; O2SAT 92–100
[2024-03-10] VITALS (18 sets, daily range): BP systolic 130–149; BP diastolic 65–87; PULSE 74–107; RESP 16–22; TEMP 97.8–98.4; O2SAT 91–100
[2024-03-10] MEDS: MORPHINE SULFATE INJ 2 MG/ml SYRG IV PRN (22:25)
[2024-03-11] VITALS (11 sets, daily range): BP systolic 129–155; BP diastolic 55–81; PULSE 83–110; RESP 15–21; TEMP 97.6–98.7; O2SAT 90–100
[2024-03-11] MEDS ORDERED: AZIT-74 PO (14:29)
[2024-03-11] MEDS ORDERED: METH4PAK PO (14:30)
== END 2024-03-11 18:55 | disposition home or self-care (01) | DRG 177 ==
LOC: EDBD 20:48 → ER 20:48 → EDSEX 20:48 → TELE 03-06 05:15 → TELE-EAST 03-06 17:29
PROVIDERS: ADMIT Nurse Practitioner; ATTEND Internal Medicine
PROC: 5A09357 Assistance with Respiratory Ventilation, Less than 24 Consecutive Hours, Continuous Positive Airway Pressure (ICD-10-PCS; principal; 2024-03-05)
DX: J15.69 Pneumonia due to other Gram-negative bacteria (principal); J96.21 Acute and chronic respiratory failure with hypoxia; J44.1 Chronic obstructive pulmonary disease with (acute) exacerbation; J45.901 Unspecified asthma with (acute) exacerbation; J15.9 Unspecified bacterial pneumonia; E83.42 Hypomagnesemia; I10 Essential (primary) hypertension; K21.9 Gastro-esophageal reflux disease without esophagitis; E78.5 Hyperlipidemia, unspecified; Z20.822 Contact with and (suspected) exposure to COVID-19; F41.9 Anxiety disorder, unspecified; F32.A Depression, unspecified; F17.210 Nicotine dependence, cigarettes, uncomplicated; F03.90 Unspecified dementia, unspecified severity, without behavioral disturbance, psychotic disturbance, mood disturbance, and anxiety; Z90.49 Acquired absence of other specified parts of digestive tract; Z98.51 Tubal ligation status; Z87.442 Personal history of urinary calculi; Z79.899 Other long term (current) drug therapy
CPT/HCPCS: 36415; 36600; 71045; 80048; 80053; 81001; 82805; 82962; 83036; 83735; 83880; 84484; 85025; 85379; 85610; 85730; 87070; 87077; 87205; 87426; 87804; 93005; 94640; 94660; 99291; G0378; J1815